=== PATIENT | female | born 1985 | race Two or more races ===

== ENCOUNTER 2017-01-01 14:38 | Emergency (ER) | payer SELFPAY ==
[~2017-01-01 14:38] MED LIST: ADVIL LIQUI-GE200 M2 PO; ADVIL200 M2 PO; BACTRIM DS1 TA1 PO; DOXYCYCLINE HY100 M3 PO; FLAGYL500 M1 PO; HYDROCODON-ACE1 EA16 PO; IBUPROFEN800 M1 PO; METHOCARBAMOL750 M1 PO; METROGEL-VAGINA70 GM VG; PREDNISONE20 M1 PO; PROAIR HFA8.5 GM IH; VENTOLIN HFA18 G2 INH; ZITHROMAX250 M1 PO
[2017-01-01] MEDS ORDERED: NO HOME MEDICATION XX (14:49)
[2017-01-01 17:17] LABS: URINE APPEARANCE CLEAR; URINE BILIRUBIN NEGATIVE (NEG); URINE BLOOD NEGATIVE (NEG); URINE COLOR YELLOW; URINE GLUCOSE (UA) NEGATIVE (NEG); URINE KETONE NEGATIVE (NEG); URINE LEUKOCYTE ESTERASE NEGATIVE (NEG); URINE NITRITE NEGATIVE (NEG); URINE PROTEIN NEGATIVE (NEG)
[2017-01-01] MEDS ORDERED: VIBRAMYCIN100 M1 PO (18:15)
[2017-01-01] MEDS ORDERED: NORCO 5/3251 TAB PO (18:15)
[2017-01-01] MEDS ORDERED: FLAGYL500 M1 PO (18:15)
== END 2017-01-01 18:40 ==
LOC: EDMED 14:38
PROVIDERS: Emergency Medicine
DX: N73.9 Female pelvic inflammatory disease, unspecified (principal); Z98.51 Tubal ligation status